=== PATIENT | female | born 1980 | race Caucasian/White ===

== ENCOUNTER 2019-05-19 11:48 | Observation (INO) ==
--- NOTE | 2019-05-19 12:40 | EKG Report ---
Test Performed on : 05/19/2019 11:54:04 AM Test Reason : chest pain Blood Pressure : / mmHG Vent. Rate : 075 BPM Atrial Rate : 075 BPM P-R Int : 142 ms QRS Dur : 084 ms QT Int : 406 ms P-R-T Axes : 070 012 051 degrees QTc Int : 453 ms Sinus rhythm. with marked sinus arrhythmia. Cannot rule out Anterior infarct , age undetermined Abnormal ECG No previous ECGs available Unconfirmed Result
--- NOTE | 2019-05-19 12:56 | Diag Imaging Result Doc PS360 ---
CHEST-2 VIEWS - 05/19/2019 INDICATION: chest pain COMPARISON: None FINDINGS: The lungs are normally expanded and clear. Heart size and mediastinal contours are normal. No pneumothorax or pleural effusion. IMPRESSION: Negative exam. Electronically signed by Haseeb Sol 05/19/2019 12:54 PM
--- NOTE | 2019-05-19 13:39 | PROVIDER DOCUMENTATION ---
HPI-General Adult - General Chief Complaint: Chest Pain Stated Complaint: CP,LT ARM,JAW PAIN,LIGHTHEADED Time Seen by Provider: 05/19/19 13:20 Source: patient Allergies/Adverse Reactions: Patient Allergies Allergy/AdvReac Type Severity Reaction Status Date / Time albuterol Allergy ANAPHYLAXIS Verified 05/19/19 12:26 codeine Allergy ANAPHYLAXIS Verified 05/19/19 12:26 doxycycline Allergy ANAPHYLAXIS Verified 05/19/19 12:26 ibuprofen Allergy ANAPHYLAXIS Verified 05/19/19 12:26 ketorolac [From Toradol] Allergy Unknown Verified 05/19/19 12:26 Penicillins Allergy ANAPHYLAXIS Verified 05/19/19 12:26 sulfamethoxazole Allergy ANAPHYLAXIS Verified 05/19/19 12:26 [From Bactrim] trimethoprim [From Bactrim] Allergy ANAPHYLAXIS Verified 05/19/19 12:26 ciprofloxacin [From Cipro] AdvReac DIARRHEA Verified 05/19/19 12:26 Home Medications: Home Medication List Medication Instructions Recorded Confirmed Last Taken Type Dicyclomine [Bentyl] 1 tab PO TID PRN 05/19/19 05/19/19 05/19/19 History Guaifenesin [Robitussin] 1 dose PO PRN PRN 05/19/19 05/19/19 05/19/19 History 0630 Lisinopril 1 tab PO DAILY 05/19/19 05/19/19 05/19/19 History Propranolol [Inderal] 1 tab PO DAILY 05/19/19 05/19/19 05/19/19 History Pseudoephedrine HCl [Sudafed] 2 tab PO PRN PRN 05/19/19 05/19/19 05/19/19 History 0630 - History of Present Illness -Gen Adult Nature of Presenting Problems: Pt. is 38 yof that presents with c/o CP that she states began while driving to class this morning. Pt. reports pain is pressure and radiates to her left shoulder, arm and jaw. She reports being SOB but denies any N/V or diaphoresis. She does state that she became light headed. Pt. denies any other symptoms. Location of Pain/Injury: reports: chest. denies: none, head, face, mouth, neck, upper extremity, hand(s), abdomen, back, pelvis, genitalia, lower extremity, feet, upper body, lower body, generalized, other Pain Radiation: reports: arm(s), jaw. denies: no radiation, back, buttocks, chest, epigastric, feet, groin, flank (L), legs (lower), LLQ, LUQ, neck, periumbilical, flank (R), RLQ, RUQ, shoulder(s), scapula, scrotal, sternal notch, suprapubic, legs (upper), urethral, vaginal, other Quality of Pain: reports: aching, pressure, tightness. denies: burning, indigestion, throbbing Severity: reports: mild. denies: moderate, severe Onset/Duration: reports: abrupt, this morning Timing: reports: still present. denies: gone now, changing over time, getting worse Context/Activities at Onset: reports: light activity. denies: none, moderate activity, vigorous activity, recent emotional stress, recent physical stress, recent trauma history, possible bad food, cold exposure, eating, out of country travel, rest, sleep, sexual activity, other Modifying Factors: improves with: nothing Associated Symptoms: reports: chest pain, shortness of breath. denies: denies symptoms, anxiety, arm pain, back/neck pain, constipation, cough, diaphoresis, diarrhea, dizziness, EENT symptoms, fatigue, fever/chills, genitourinary problems, headaches, heartburn, joint pain, loss of appetite, malaise, muscle aches, sinus congestion/drainage, nausea, rash, seizure, sensory/motor loss, pain with inspiration, swelling/mass in abdomen, syncope, vomiting, weakness, trouble walking, other Similar Symptoms Previously?: No Recently seen or treated by another doctor?: No Review of Systems - Adult - REVIEW OF SYSTEMS - ADULT Constitutional: reports: no symptoms reported Eyes: reports: no symptoms reported Ears, Nose, Mouth & Throat: reports: no symptoms reported Cardiovascular: reports: see HPI, chest pain. denies: orthopnea, palpitations, syncope Respiratory: reports: see HPI, shortness of breath. denies: cough, dyspnea on exertion, hemoptysis Gastrointestinal: reports: no symptoms reported Genitourinary: reports: no symptoms reported Musculoskeletal: reports: no symptoms reported Integumentary: reports: no symptoms reported Neurological: reports: no symptoms reported Psychiatric: reports: no symptoms reported Past History - Adult - PAST MEDICAL HISTORY-ADULT Review of Records: reports: Old Records Reviewed, Nursing Assessment Review, Medications Reviewed, Social history reviewed & non-contributory. - IMMUNIZATION STATUS Childhood Immunizations: See Nurse Assessment Flu Vaccine: See Nurse Assessment - FAMILY HISTORY Family History: reviewed, not pertinent - SOCIAL HISTORY Smoking: cigarettes, greater than 1 pack/day Provider spent 3-5 mins advising pt. on dangers of tobacco.: Discussed manners to quit use, and f/u contacts for add'l counseling. Physical Exam-General - PHYSICAL EXAM-ADULT Initial Vital Signs Reviewed: Yes - CONSTITUTIONAL General Appearance: alert, no apparent distress. negative: anxious, obtunded, combative - EYES Eyes: PERRL/EOMI, pink conjunctivae - HEAD, EARS, NOSE, MOUTH & THROAT HENMT: normocephalic/atraumatic, moist mucous membranes - NECK Neck: non-tender, full range of motion, supple - RESPIRATORY Respiratory: lungs clear, normal breath sounds - CARDIOVASCULAR Cardiovascular: normal peripheral pulses, regular rate, rhythm, no edema - GASTROINTESTINAL (ABDOMEN) Abdominal Exam: normal bowel sounds, non tender - LYMPHATIC Lymphatic: no adenopathy - MUSCULOSKELETAL Back Exam: normal inspection, no CVA tenderness, no vertebral tenderness Extremity: normal range of motion, non-tender, normal gait, normal inspection Peripheral Pulses: radial (R): 2+, radial (L): 2+ - SKIN Integumentary: normal color, normal turgor, warm/dry - NEUROLOGIC Neurologic: grossly normal, no motor/sensory deficits - PSYCHIATRIC Psych/Mental Status: normal mood/affect, normal thought content, normal thought process, oriented x 3 Progress - PLAN OF CARE/RESULTS Progress/Plan/Lab Results: Vital Signs - 8 hr 05/19/19 11:54 Temperature 99.8 F H Pulse Rate 86 Respiratory Rate 18 Blood Pressure 149/82 O2 Sat by Pulse Oximetry 99 Orders Category Date Time Status Cardiac Monitoring DIRECTED Care 05/19/19 12:30 Active Oxygen Therapy- ED Nursing DIRECTED Care 05/19/19 12:30 Active Saline Loc NOW Care 05/19/19 12:30 Active CHEST-2 VIEWS [RAD] Stat Exams 05/19/19 12:30 Completed CBC WITH ELECTRONIC DIFF [HEME] Stat Lab 05/19/19 13:30 Ordered CK PROFILE [SP CHEM] Stat Lab 05/19/19 13:30 Ordered COMPREHENSIVE METABOLIC PANEL [CHEM] Stat Lab 05/19/19 13:30 Ordered PRO B-NATRIURETIC PEPTIDE Stat Lab 05/19/19 13:30 Ordered PROTIME WITH INR [COAG] Stat Lab 05/19/19 13:30 Ordered PTT [COAG] Stat Lab 05/19/19 13:30 Ordered TROPONIN T Stat Lab 05/19/19 13:30 Ordered CP/SOB/Palp >45 yrs of Age Stat Oth 05/19/19 12:30 Ordered EKG [EKG] Stat Ther 05/19/19 12:30 Draft Laboratory Tests 05/19/19 13:13 PT 12.1 INR 0.89 PTT (Actin FS) 26.5 Laboratory Tests 05/19/19 05/19/19 05/19/19 13:13 13:13 13:13 WBC 6.74 RBC 3.97 L Hgb 13.3 Hct 38.5 MCV 97.0 MCH 33.5 H MCHC 34.5 RDW Std Deviation 12.2 Plt Count 266 MPV 10.9 H Immature Gran % (Auto) 0.3 Neut % (Auto) 58.5 Lymph % (Auto) 31.9 [place] % (Auto) 7.7 Eos % (Auto) 1.2 Baso % (Auto) 0.4 Immature Gran # (Auto) 0.02 Neut # (Auto) 3.94 Lymph # (Auto) 2.15 [place] # (Auto) 0.52 Eos # (Auto) 0.08 Baso # (Auto) 0.03 PT INR PTT (Actin FS) Sodium 138 Potassium 4.4 Chloride 98 Carbon Dioxide 28 Anion Gap 12 BUN 10 Creatinine 0.5 Estimated GFR/1.73 m2 > 60 BUN/Creatinine Ratio 20 Glucose 106 H Calculated Osmolality 275 Calcium 10.2 Total Bilirubin 0.36 AST 68 H ALT 89 H Alkaline Phosphatase 106 H Creatine Kinase 47 Troponin T [id number] Pept 55 Total Protein 7.5 Albumin 4.7 Globulin 2.8 Albumin/Globulin Ratio 1.7 05/19/19 05/19/19 13:13 13:13 WBC RBC Hgb Hct MCV MCH MCHC RDW Std Deviation Plt Count MPV Immature Gran % (Auto) Neut % (Auto) Lymph % (Auto) [place] % (Auto) Eos % (Auto) Baso % (Auto) Immature Gran # (Auto) Neut # (Auto) Lymph # (Auto) [place] # (Auto) Eos # (Auto) Baso # (Auto) PT 12.1 INR 0.89 PTT (Actin FS) 26.5 Sodium Potassium Chloride Carbon Dioxide Anion Gap BUN Creatinine Estimated GFR/1.73 m2 BUN/Creatinine Ratio Glucose Calculated Osmolality Calcium Total Bilirubin AST ALT Alkaline Phosphatase Creatine Kinase Troponin T < 0.010 Nic-S-Ferkucphrgp Pept Total Protein Albumin Globulin Albumin/Globulin Ratio Heart score = 4 Discussed results and plan of care with patient. Patient agrees with plan and verbalizes understanding. Result Diagrams: 05/19/19 13:13 05/19/19 13:13 - XRAY 1 XRAY Study: Chest ([facility] - [address] [address], [address] [address] [facility] - [address] [place] [address] Department of Imaging Patient: ADAMARIS PATEL Date: 05/19/19#: [id number] : 1980ADM Status: PRE ERAcct#: [id number] Age/Sex: 38/FRoom/Bed: Loc: ED Ordering Physician: Marshall Combs MD Family Physician: None,PCP Reason for Procedure: chest pain Signed CHEST-2 VIEWS - 05/19/2019 INDICATION: chest pain COMPARISON: None FINDINGS: The lungs are normally expanded and clear. Heart size and mediastinal contours are normal. No pneumothorax or pleural effusion. IMPRESSION: Negative exam. Electronically signed by Haseeb Sol 05/19/2019 12:54 PM 05/19/19 1254 Interpreting Physician: Haseeb Sol MD Dictated Date/Time: 05/19/19 1253 cc: Marshall Combs MD; None,PCP) XRAY Interpretation: See note - CONSULTS/PCP/HOSPITALIST Notification #1 *Consult/PCP/Hospitalist*: Meghna Perez Time Discussed: 14:24 Reason/Comments: Admission Consult Disposition: Will see in ED, Admit Departure - Departure Date of Disposition Decision: 05/19/19 Time of Disposition Decision: 14:24 DIAGNOSIS: Elevated liver enzymes Chest pain Qualifiers: Chest pain type: unspecified Qualified Code(s): R07.9 - Chest pain, unspecified Disposition: ADMITTED INPATIENT 09 Certified Medical Emergency: Emergent Condition: Stable Referrals and Follow-Ups: None,PCP [Primary Care Provider] - - Critical Care Note This patient required my direct & personal management of CC.: No Attestation - Physician/ ROSEANNA Attestation Patient care was provided by Advanced Practice Provider:: Yes Advanced Practice Provider:: Chevy Johnson Advanced Practice Provider documentation review:: The Mid-level provider documentation, treatment plan and medical decision making was reviewed by the physician who agrees with all treatment and medical decision making by the MLP. The physician spent face to face time with patient:: No Advanced Practice Provider documentation review:: Supervising physician onsite and consulted in the evaluation and care of this patient. The physician did not have a face to face encounter with the patient.
[2019-05-19] MEDS ORDERED: G.I. COCKTAIL PO ONE (13:40)
[2019-05-19] MEDS ORDERED: PROTONIX PO ONE (13:41)
[2019-05-19 13:50] LABS: INR 0.89; PROTIME 12.1 Seconds (11.0-16.0)
[2019-05-19 13:52] LABS: PTT 26.5 Seconds (22.3-41.8)
[2019-05-19 13:58] LABS: AGAP 12; ALB/GLOB RATIO 1.7; ALBUMIN 4.7 g/dL (3.5-5.0); ALKALINE PHOSPHATASE 106 U/L (32-104); BUN 10 mg/dL (8-22); CALCIUM 10.2 mg/dL (8.8-10.2); CHLORIDE 98 mmol/L (98-107); CK PROFILE 47 U/L (24-173); COSMO 275; CREATININE 0.5 mg/dL (0.5-0.9); ESTIMATED GFR > 60; GLUCOSE 106 mg/dL (70-104); GOT 68 U/L (10-30); GPT 89 U/L (10-36); POTASSIUM 4.4 mmol/L (3.5-5.1); SODIUM 138 mmol/L (136-145); TCO2 28 mmol/L (25-35); TOTAL BILIRUBIN 0.36 mg/dL (0.20-1.00); TOTAL PROTEIN 7.5 g/dL (6.3-8.3)
[2019-05-19 14:00] LABS: BASO# 0.03 X1000 (0.0-0.2); BASO% 0.4 % (0.0-0.8); EOS# 0.08 X1000 (0.0-0.7); EOS% 1.2 % (0.0-10.0); HEMATOCRIT 38.5 % (37.0-47.0); HEMOGLOBIN 13.3 g/dL (12.0-16.0); IMM GRAN# 0.02 X1000 (0.0-0.04); IMM GRAN% 0.3 % (0.0-0.5); LYMPH# 2.15 X1000 (1.2-3.4); LYMPH% 31.9 % (20.5-51.1); MCH 33.5 PG (27-31); MCHC 34.5 g/dL (33-37); MONO# 0.52 X1000 (0.11-0.59); MONO% 7.7 % (1.7-9.3); MPV 10.9 FL (7.4-10.4); NEUT# 3.94 X1000 (1.4-6.5); NEUT% 58.5 % (42.2-75.2); PLT 266 X1000 (130-400); RBC 3.97 XMIL (4.2-5.4); RDW 12.2 % (11.5-14.5); WBC 6.74 X1000 (4.8-10.8)
[2019-05-19] MEDS ORDERED: NITROGLYCERIN TOP ONE (14:20)
[2019-05-19] MEDS ORDERED: ASPIRIN PO ONE (14:23)
[2019-05-19] MEDS ORDERED: ZOFRAN IV ONE (14:38)
--- NOTE | 2019-05-19 14:49 | ED EKG INTERP ---
This chart was entered by Yareli Diaz Scribe, acting as scribe for Marshall Combs MD. EKG Interpretation - EKG Time of EKG reading by physician:: 11:54 EKG Read and Signed by:: Marshall Combs EKG Interpretation (*Must complete 3 of following elements*): Abnormal Rate: 75 Rhythm: sinus rhythm with marked sinus arrhythmia [place]: normal PA Interval: normal Comments: cannot rule out anterior infarct, age undetermined Attestation - Physician/ ROSEANNA Attestation Patient care was provided by Advanced Practice Provider:: Yes Advanced Practice Provider:: Chevy Johnson Advanced Practice Provider documentation review:: The Mid-level provider documentation, treatment plan and medical decision making was reviewed by the physician who agrees with all treatment and medical decision making by the P. The physician spent face to face time with patient:: No Advanced Practice Provider documentation review:: Supervising physician onsite and consulted in the evaluation and care of this patient. The physician did not have a face to face encounter with the patient. This chart was documented by the indicated scribe, (Yareli Diaz Scribe) and accurately reflects the services I performed and decisions made by me, Marshall Combs MD, as attested by the provider's signature.
[2019-05-19] MEDS ORDERED: ZOFRAN IV PRN (16:24)
[2019-05-19] MEDS ORDERED: BENTYL PO PRN (16:24)
[2019-05-19] MEDS ORDERED: TYLENOL PO PRN (16:24)
--- NOTE | 2019-05-19 16:39 | HISTORY AND PHYSICAL ---
PRIMARY CARE PROVIDER: None. CHIEF COMPLAINT: Chest pain. HISTORY OF PRESENT ILLNESS: This is a 38-year-old female that states she developed chest pain earlier this morning that was substernal, radiating to back and jaw with associated dizziness, nausea and fatigue, palpitations. Pt states pain similar in anginal equivalent to the previous mild AR that she experienced in 2007 after having a hysterectomy. The patient states that the pain was rated a 9/10 and had a blood pressure of 173/116. The patient was then presented to the emergency room where she reports that she did have slight relief, but still states that the pain is 9/10 presently though she is sitting comfortably in the bed. PAST MEDICAL HISTORY: Includes cervical CA, IBS, kidney stones, and AR in October 2005 after C- section and in 2007 before hysterectomy. Positive for hepatitis C that she contracted after a dental procedure. PAST SURGICAL HISTORY: Includes hysterectomy, oophorectomy, in 2005. FAMILY HISTORY: States that her mother at 52 from the AR. SOCIAL HISTORY: She states she smokes 5 to 10 cigarettes a day and does Vape at night. Denies any use of illicit drugs. Rarely uses alcohol. States that her and her recently moved to the area from [place]. The patient does have 2 children, but they live with their father in [place]. ALLERGIES: Are to albuterol, which causes anaphylaxis. Codeine anaphylaxis. Doxycycline anaphylaxis. Ibuprofen anaphylaxis. Ketorolac, she states that just causes itching and makes her "want to rip out her IV", penicillin anaphylaxis. Sulfa, Bactrim, anaphylaxis, and ciprofloxacin causes diarrhea. HOME MEDICATIONS: Include Bentyl 1 tablet p.o. t.i.d. p.r.n. for IBS, lisinopril 40 mg daily, propranolol 20 mg daily, and Sudafed as needed. Robitussin as needed. Medications to be updated and reconciled. REVIEW OF SYSTEMS: The patient denies fever, chills.HEENT: The patient denies headache, vision changes. Positive for some dizziness associated with chest pain earlier. Denies neck pain or stiffness. Endocrine: Denies excessive thirst, urination, or intolerance. Cardiovascular: Positive for palpitations. Chest pain rated 9/10. Dyspnea stated with exertion. No lower extremity edema noted. Respiratory: States she did have some shortness of breath associated with chest pain. GI: Positive for nausea. Denies diarrhea or constipation. : Denies burning, frequency or urgency or any hematuria. Musculoskeletal: States some muscle weakness associated with chest pain. Neuro: Neuro positive for weakness associated with chest pain. Hematological: Denies bruising. Psych: Denies depression or mental illness. Skin: No rashes or lesions noted. LABORATORY AND DIAGNOSTIC: The chest x-ray was a negative exam. EKG shows sinus arrhythmia beats per minute 75. Labs: WBC 6.74, hemoglobin and hematocrit is 13.3 with 38.5, platelets are 266,000. PT 12.1, INR 0.89, PTT 26.5. Sodium 138, potassium 4.4, chloride of 98, BUN 10, creatinine of 0.5. AST is 68, ALT 89. Initial troponin negative. ProBNP 55. PHYSICAL EXAMINATION: VITAL SIGNS: Temperature 99.8, pulse 74, respiratory rate of 15, blood pressure 127/94, 100% on room air.General: This is a well-appearing 38-year-old female. HEENT: Normocephalic. PERRLA. Mucous membranes were moist. Neck: There was no lymphadenopathy. Trachea was midline date. No JVD noted. Cardiovascular: No murmurs, gallops, or rubs. Rate was slightly irregular. Respiratory: Lungs are clear to auscultation in all [place] with nonlabored respirations and no accessory muscle use. GI: Abdomen was soft, nontender, nondistended with bowel sounds x4 quadrants. Neuro: Cranial nerves 2-12 are grossly intact. Musculoskeletal: Strength was 5/5 on all 4 extremities. Skin: Warm, dry, and intact. ASSESSMENT AND PLAN: 1. Chest pain. 2. Elevated liver enzymes. 3. Hypertension. PLAN: 1. We will admit today at [facility] placed on telemetry consult cardiology. We will obtain an echo and a stress test in the morning and an EKG. Nitroglycerin 0.4 mg sublingual as needed for chest pain. Acetaminophen for pain. 2. We will continue home medications once updated and reconciled. 3. Apply sequential compression devices for deep venous thrombosis prophylaxis. 4. Obtain a CBC, lipid, magnesium and continue troponin and CK profile, and maintain a heart healthy diet. Oxygen as needed to maintain saturation above 90%. 5. Further recommendations will be pending per patient's clinical course and response to therapy. Dictated by THOM Agosto for Vasile Loza MD Addendum: Patient seen and examined by myself. Agree with THOM note. It reflects my assessment and plan. Patient has CAD and comes to ER with chest pain. She has family history of cardiac disease so will trend troponins, order an echocardiogram and Lexiscan and will consult Cardiology. cc: Vasile Loza MD [facility]
[2019-05-19] MEDS ORDERED: FLEXERIL PO PRN (17:25)
[2019-05-19 17:26] LABS: MAGNESIUM 1.8 mg/dL (1.5-2.7)
[2019-05-19] MEDS: NICODERM PATCH TD SCH (17:52)
[2019-05-19] MEDS: NITROGLYCERIN SL PRN ×2 (19:07→19:19)
[2019-05-20] MEDS ORDERED: PRILOSEC PO SCH (07:00)
--- NOTE | 2019-05-20 07:02 | EKG Report ---
Test Performed on : 05/20/2019 06:47:46 AM Test Reason : chest pain Blood Pressure : / mmHG Vent. Rate : 081 BPM Atrial Rate : 081 BPM P-R Int : 142 ms QRS Dur : 088 ms QT Int : 430 ms P-R-T Axes : 063 021 049 degrees QTc Int : 499 ms Normal sinus rhythm. Prolonged QT Abnormal ECG When compared with ECG of 19-MAY-2019 11:54, (Unconfirmed) QT has lengthened Confirmed by Radha Gutierrez MD ([id number]) on 05/24/2019 8:31:21 AM
[2019-05-20 07:07] LABS: BASO# 0.02 X1000 (0.0-0.2); BASO% 0.4 % (0.0-0.8); EOS% 2.1 % (0.0-10.0); HEMATOCRIT 38.2 % (37.0-47.0); LYMPH# 1.94 X1000 (1.2-3.4); LYMPH% 40.3 % (20.5-51.1); MCH 33.2 PG (27-31); MCV 97.4 FL (81-99); MONO% 10.4 % (1.7-9.3); MPV 10.9 FL (7.4-10.4); NEUT# 2.25 X1000 (1.4-6.5); NEUT% 46.8 % (42.2-75.2); PLT 242 X1000 (130-400); RBC 3.92 XMIL (4.2-5.4); RDW 12.1 % (11.5-14.5); WBC 4.81 X1000 (4.8-10.8)
[2019-05-20] MEDS: NICODERM PATCH TD SCH (08:01)
--- NOTE | 2019-05-20 08:55 | PROGRESS NOTE ---
DATE: 05/20/2019 SUBJECTIVE: Patient continues to have on and off chest discomfort and chest pain in the suprasternal area. Denies any other complaints now. OBJECTIVE: Vital Signs: Temperature 98.2 degrees, heart rate 75 respiratory rate 15, blood pressure 115/70, and O2 saturation 100% on room air. General: This is a 38-year-old female lying in bed in no acute distress. Cardiovascular: S1, S2 heard. No murmurs, gallops, or rubs. Regular rate and rhythm. Respiratory: Clear bilaterally to auscultation. No work of breathing or using accessory muscles. Abdomen: Soft. Nontender to palpation. Bowel sounds present. No organomegaly. Extremities: No clubbing, cyanosis, or edema. Peripheral pulses present in both legs. Neurological: Patient is alert and oriented x3. Moves all 4 extremities. LABORATORY DATA: Troponin's have been checked three times and those are normal. ASSESSMENT AND PLAN: 1. Coronary artery disease with chest pain. The patient continues to complain of chest pain and chest discomfort in the substernal area. So far, we have ruled out acute coronary syndrome by checking troponin's 3 times. Our plan is to do a Lexiscan stress test, and we will see what it shows. Cardiology has been consulted. We will follow recommendations. 2. Transaminitis. We do not know exactly why those are elevated. In any case, we will do an abdominal ultrasound. Those enzymes are not revealed elevated, but we will see what that ultrasound shows. 3. Hypertension. Blood pressure is under control. We will continue with same management. 4. Tobacco use. Patient is strongly advised to stop smoking. Patient acknowledged understanding. 5. Disposition. We will see what this Lexiscan stress test shows today, and we will go from there. cc: Vasile Loza MD MTDD
[2019-05-20] MEDS ORDERED: PRINIVIL PO SCH (09:00)
[2019-05-20] MEDS ORDERED: INDERAL PO SCH (09:00)
--- NOTE | 2019-05-20 12:34 | Diag Imaging Result Document ---
PROCEDURE NAME: MYOCARDIAL PERF SCAN, STR/REST - 05/20/2019 INDICATION: Chest pain. PROCEDURE PERFORMED: 1. Lexa protocol stress. 2. One-day stress/rest myocardial perfusion imaging. PROCEDURE DETAIL: Ms. Dumas was brought to the nuclear laboratory and had a resting study with injection of 11.8 mCi of technetium-99m sestamibi with the usual imaging protocol utilized. He subsequently was brought back and had a Lexa protocol stress and at peak stress, was injected with 37.1 mCi of technetium-99m sestamibi with usual imaging protocol utilized. FINDINGS: Lexa protocol stress results: 1. Baseline EKG shows sinus rhythm. 2. Patient exercised for 7-1/2 minutes, achieving peak heart rate of 160 which was 86% of age predicted max. She achieved 9.3 METS and mid stage 3 of the Lexa protocol. Exercise capacity was 90% of age and sex predicted exercise capacity. 3. Appropriate blood pressure response to exercise. 4. The test was terminated due to fatigue. 5. No anginal complaints occurred during the course of the study. 6. No ischemic-related EKG changes or significant arrhythmias were identified during the course of the study. 7. An treadmill score of 7.5 indicating a low-risk study. Perfusion imaging results: 1. No evidence of abnormal extracardiac uptake. 2. TID ratio 0.84. 3. Perfusion imaging demonstrates normal homogenous uptake of radiotracer throughout the myocardial segments. There is no evidence of stress-related defects. 4. Normal ejection fraction of 82%. End-diastolic volume 66, end-systolic volume 12. Normal wall motion. cc: Jas Gallagher MD
--- NOTE | 2019-05-20 12:59 | ECHO REPORT ---
ORDER DATE: 05/19/2019 INDICATION: Hypertension, chest pain. FINDINGS: 1. Right atrium appears normal in size. 2. Mild tricuspid regurgitation. 3. Normal RV size and systolic function. 4. No significant pulmonic insufficiency. 5. Normal left atrial size. Volume index of 17, dimension of 3.2. 6. No mitral valve prolapse. Trace mitral regurgitation. No evidence of mitral stenosis. 7. Normal LV size, end-diastolic dimension of 4.5. Normal wall thicknesses with a posterior and interventricular septal wall thickness of 0.8 and 0.7 cm respectively. Normal LV systolic function. Estimated EF is 60% with normal wall motion. 8. The aortic valve opens well. No evidence of stenosis or insufficiency. 9. The aorta appears normal in visualized segments. 10. No pericardial effusion seen. cc: Jas Gallagher MD
[2019-05-20] MEDS ORDERED: ROBAXIN PO PRN ×2 (14:14→14:26)
[2019-05-20 15:11] LABS: URINE SOURCE CLEAN CATCH
[2019-05-20 15:38] LABS: UR AMPHETAMINES QUAL NONE DETECTED (NONE DETECT); UR BARBITUATES QUAL NONE DETECTED (NONE DETECT); UR BENZODIAZEPIN QUAL NONE DETECTED (NONE DETECT); UR CANNABINOIDS QUAL NONE DETECTED (NONE DETECT); UR COCAINE QUAL NONE DETECTED (NONE DETECT); UR METHADONE QUAL NONE DETECTED (NONE DETECT); UR OPIATES QUAL NONE DETECTED (NONE DETECT); UR OXYCODONE QUAL NONE DETECTED (NONE DETECT); UR PCP QUAL NONE DETECTED (NONE DETECT)
[2019-05-20 15:39] LABS: BILIRUBIN URINE NEGATIVE (NEGATIVE); BLOOD URINE NEGATIVE (NEGATIVE); COLOR YELLOW; GLUCOSE URINE NEGATIVE (NEGATIVE); KETONE URINE NEGATIVE (NEGATIVE); LEUKOCYTES URINE NEGATIVE (NEGATIVE); NITRITE URINE NEGATIVE (NEGATIVE); PH URINE 7.5; PROTEIN URINE NEGATIVE (NEGATIVE); SP GRAVITY URINE 1.006; TURBIDITY URINE CLEAR (CLEAR); UR EPITHELIAL CELLS <10 /HPF (<10); URINE BACTERIA NEGATIVE /HPF; URINE RBC <10 /HPF (<10); URINE WBC <10 /HPF (<10); UROBILINOGEN URINE NORMAL (NORMAL)
--- NOTE | 2019-05-20 16:27 | CONSULTATION ---
DATE OF CONSULTATION: 05/20/2019 IMPRESSION: 1. Chest pain, atypical for myocardial ischemia. Echocardiogram benign and serial cardiac enzymes negative. 2. Chronic cigarette use. 3. Hypertension. 4. Reported cardiovascular complication following section in 2005. Details not available. 5. Hepatitis C. RECOMMENDATIONS: 1. Agree with plans for stress testing and echocardiography. 2. Smoking cessation discussed/recommended. 3. If noninvasive cardiac studies benign, reasonable for patient to be discharged to home. HISTORY: This 38-year-old white female with past history of hypertension, chronic cigarette use, cervical cancer, hepatitis C and inflammatory and inflammatory disorder was admitted with chest pain. 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 She started experiencing left parasternal discomfort that extended to her back. Discomfort is characterized as dull and sharp and accentuated by cough or very deep breath. Discomfort was rather persistent and she came to the emergency room for evaluation. She has had rather persistent chest discomfort with only brief improvement versus distraction from her discomfort after sublingual nitroglycerin which caused a severe headache. Chest discomfort, however, was reported not long thereafter. PAST MEDICAL HISTORY: 1. Hypertension. 2. Cervical cancer. Patient is status post hysterectomy and bilateral oophorectomy. 3. Nephrolithiasis. 4. Hepatitis C infection. 5. Irritable bowel syndrome and diverticular disease of the colon. 6. Reported history of some sort of cardiovascular event following section in 2005 at age 25. Details not available. PAST SURGICAL HISTORY: 1. Hysterectomy, oophorectomy. 2. Previous section. ALLERGIES: She has multiple drug allergies as listed. MEDICATIONS PRIOR TO ADMISSION: As listed. SOCIAL HISTORY: She is . She smokes about half pack of cigarettes per day currently in effort to cut down. She also Vapes. She denies alcohol use or illicit drug use. 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 FAMILY HISTORY: Positive for coronary disease. REVIEW OF SYSTEMS: Pulmonary: Noteworthy for cough as well as pleuritic chest pain. Gastrointestinal: Negative. Constitutional: Negative for fever. Remainder of review of systems negative/noncontributory with 14 total systems reviewed. PHYSICAL EXAMINATION: General: This is an adult female in no distress on room air. Vital signs: Blood pressure 115/70, heart rate 75. HEENT: Extraocular movements appear intact. Mucous membranes are moist. Neck: Supple without jugular venous distention. There are no carotid bruits. Chest: Clear to auscultation bilaterally. Cardiac Exam: Reveals a regular rate and rhythm without appreciable rub or gallop. Abdomen: Soft. Bowel sounds normal. Extremities: Without edema. Neurologic: Reveals her to be alert and fully oriented. Speech is fluent. She moves all 4 extremities equally well. Skin: Warm dry. Psychiatric: Reveals her mood to be appropriate. PERTINENT DATA: Twelve lead EKG demonstrates normal sinus rhythm and within normal limits. LABORATORY DATA: Includes a sodium 138, potassium 4.4, chloride 98, carbon dioxide 28, BUN 10 and creatinine 0.5, glucose 106. White blood cell count 4.81, hematocrit 38.2, hemoglobin 13.1, platelet count 242, initial CPK 47 with a followup CPK of 45 and 41 initial troponin less than 0.01. Followup troponin of less than 0.01 and less than 0.01. cc: Vaughn Goel MD
[2019-05-20 17:02] VITALS: BP 112/78
--- NOTE | 2019-05-21 13:53 | DISCHARGE SUMMARY ---
ADMISSION DATE: 05/19/2019 DISCHARGE DATE: 05/20/2019 DISCHARGE DIAGNOSIS: 1. Chest pain resolved, acute coronary syndrome ruled out. 2. Transaminitis. 3. Hypertension. 4. Tobacco abuse. CONSULTATIONS: Dr. Vaughn Goel from Cardiology. PROCEDURES: 1. Chest x-ray done on admission was negative. 2. Echocardiogram Doppler showed ejection fraction of 60% with no pericardial effusion, no mitral valve prolapse. 3. Myocardial perfusion scan nuclear medicine showed no evidence of abnormal extracardiac uptake, normal ejection fraction of 82, no evidence of stress related defects. HOSPITAL COURSE: In brief this is a 38-year-old female who developed chest pain and she has a past medical history of coronary artery disease and family history of coronary artery disease as well. Because that pain was getting worse she was admitted to the hospital and we have checked troponins 3 times that were negative, echocardiogram and Lexiscan stress test showed results as above so considering that her chest pain is also gone we decided to discharge this patient. Patient is being discharged in stable condition. DISCHARGE PHYSICAL EXAMINATION: VITALS: Temperature 98.3 degrees, heart rate 86, respiratory 19, blood pressure 112/78, O2 saturation 100% on room air. General: This is a 38-year-old female lying in bed in no acute distress. Cardiovascular: S1, S2 heard. No murmurs, gallops, or rubs. Regular rate and rhythm. Respiratory: Clear bilaterally to auscultation. No work of breathing or using accessory muscles. Abdomen: Soft, nontender to palpation. Bowel sounds present. No organomegaly. Extremities: No clubbing, cyanosis or edema. Peripheral pulses present in both legs. Neurologic: Patient alert, oriented x3, moves 4 extremities. DISCHARGE DISPOSITION: Home to self-care. FOLLOWUP: With her primary care physician in a week. MEDICATIONS: We are not going to make any changes to her current medications. cc: MD BRIT Ingram
== END 2019-05-20 19:50 | disposition home or self-care (01) ==
LOC: 2N 11:48 → ED 11:48
PROVIDERS: ATTEND Internal Medicine